=== PATIENT | male | born 1960 | race Caucasian/White ===

== ENCOUNTER 2017-06-23 14:42 | Emergency (ER) | payer OTHER ==
[~2017-06-23] VITALS: Ht 175.3 cm; Wt 86.2 kg
[2017-06-23 14:45] VITALS: Ht 175.3 cm; Wt 86.2 kg
[2017-06-23 16:38] VITALS: BP 129/70
== END 2017-06-23 16:38 | disposition home or self-care (01) ==
LOC: EDBD 14:42 → ED 14:42
DX: M54.9 Dorsalgia, unspecified (principal); W22.09XA Striking against other stationary object, initial encounter; Y93.89 Activity, other specified; Y99.8 Other external cause status; Y92.89 Other specified places as the place of occurrence of the external cause
CPT/HCPCS: J3010

== ENCOUNTER 2017-07-12 18:53 | Emergency (ER) | payer MEDICAID ==
[~2017-07-12] VITALS: Ht 175.3 cm; Wt 89.8 kg
[2017-07-12 18:58] VITALS: Ht 175.3 cm; Wt 89.8 kg
[2017-07-12 19:36] VITALS: BP 150/116
== END 2017-07-12 19:36 | disposition home or self-care (01) ==
LOC: ED 18:53
DX: S39.012A Strain of muscle, fascia and tendon of lower back, initial encounter (principal); W22.8XXA Striking against or struck by other objects, initial encounter; Y93.02 Activity, running; Y92.89 Other specified places as the place of occurrence of the external cause; Y99.8 Other external cause status

== ENCOUNTER 2018-03-26 15:22 | Emergency (ER) | payer MEDICAID ==
[~2018-03-26] VITALS: Ht 172.7 cm; Wt 82.7 kg
[2018-03-26 15:33] VITALS: Ht 172.7 cm; Wt 82.7 kg
[2018-03-26 16:04] VITALS: BP 132/82
== END 2018-03-26 16:04 | disposition home or self-care (01) ==
LOC: ED 15:22
DX: G89.29 Other chronic pain (principal); M54.5 Low back pain